=== PATIENT | female | born 2000 | race Caucasian/White ===

== ENCOUNTER → 2022-03-22 | Outpatient (CLI) | payer OTHER | LOC: M RAD 09:17 | PROVIDERS: ATTEND Obstetrics & Gynecology | DX: Z34.93 Encounter for supervision of normal pregnancy, unspecified, third trimester (principal); Z3A.30 30 weeks gestation of pregnancy ==

== ENCOUNTER 2022-05-02 14:37 | Outpatient (CLI) | payer OTHER ==
[~2022-05-02] VITALS: Ht 160 cm; Wt 96.9 kg
[2022-05-02] VITALS (8 sets, daily range): BP systolic 126–153; BP diastolic 78–99
[2022-05-02] MEDS ORDERED: FERR325T3 PO (15:05)
[2022-05-02] MEDS ORDERED: PRENTAB9 PO (15:05)
[2022-05-02] MEDS ORDERED: VITA500C24 PO (15:05)
[2022-05-02] MEDS ORDERED: HOME MED LIST COMPLETE! XX SCH (15:10)
[2022-05-02 16:30] LABS: TOTAL PROTEIN,RANDOM URINE 71.6 MG/DL (0.0-14.0)
[2022-05-02 16:35] LABS: CREATININE,RANDOM URINE 159.7 MG/DL
[2022-05-02] MEDS ORDERED: ACETAMINOPHEN TAB 650MG DOSE (2X325MG) PO ONE (16:50)
[2022-05-02 17:03] LABS: HEMOGLOBIN 13.1 g/dl (12.0-15.5); MEAN CORPUSCULAR HEMOGLOBIN 28.7 pg (27.0-33.0); MEAN CORPUSCULAR HGB CONC 32.8 g/dl (32.0-36.5); MEAN CORPUSCULAR VOLUME 87.7 fl (80.0-96.0); PLATELET COUNT, AUTOMATED 238 10^3/uL (150-450); RED BLOOD COUNT 4.56 10^6/uL (4.00-5.40); WHITE BLOOD COUNT 10.6 10^3/uL (4.0-10.0)
[2022-05-02 17:34] LABS: ALBUMIN 2.8 G/DL (3.2-5.2); ALKALINE PHOSPHATASE 105 U/L (46-116); ALT/SGPT 10 U/L (7.0-40); BILIRUBIN,TOTAL 0.3 MG/DL (0.3-1.2); BLOOD UREA NITROGEN 12 MG/DL (9-23); CALCIUM LEVEL 9.6 MG/DL (8.5-10.1); CARBON DIOXIDE LEVEL 22 MMOL/L (20-31); CHLORIDE LEVEL 106 MMOL/L (98-107); CREATININE FOR GFR 0.56 MG/DL (0.55-1.30); GLOMERULAR FILTRATION RATE > 60.0 (>60); GLUCOSE, FASTING 95 MG/DL (60-100); POTASSIUM SERUM 4.4 MMOL/L (3.5-5.1); SODIUM LEVEL 137 MMOL/L (136-145)
[2022-05-02] MEDS ORDERED: LABETALOL 200 MG TAB PO ONE (17:40)
[2022-05-02 18:15] LABS: AST/SGOT 18 U/L (<34); TOTAL PROTEIN 6.3 G/DL (5.7-8.2)
[2022-05-02] MEDS ORDERED: LABETALOL 200 MG TAB PO SCH (21:00)
== END 2022-05-02 19:58 | disposition home or self-care (01) ==
LOC: M LDO 14:37
PROVIDERS: ATTEND Registered Nurse
DX: O14.03 Mild to moderate pre-eclampsia, third trimester (principal); O36.8130 Decreased fetal movements, third trimester, not applicable or unspecified; Z3A.36 36 weeks gestation of pregnancy
CPT/HCPCS: 36415; 59025; 76816; 76819; 76820; 76821; 80053; 82570; 84156; 85027; G0463

== ENCOUNTER 2022-05-04 10:02 | Inpatient (IN) | payer OTHER ==
[2022-05-04] VITALS (17 sets, daily range): BP systolic 122–147; BP diastolic 60–95
[~2022-05-04] VITALS: Ht 160 cm; Wt 97.0 kg
[~2022-05-04 10:02] MED LIST: FERR325T3 PO; PRENTAB9 PO; VITA500C24 PO
[2022-05-04] MEDS ORDERED: LABE200T5 PO (10:52)
[2022-05-04] MEDS ORDERED: HOME MED LIST COMPLETE! XX SCH (10:55)
[2022-05-04] MEDS ORDERED: ACETAMINOPHEN 500 MG TAB PO ONE (11:00)
[2022-05-04] MEDS ORDERED: LACTATED RINGER'S 1000 ML IV STA (12:56)
[2022-05-04] MEDS ORDERED: OXYTOCIN INJ 10UNITS/ML 1ML VIAL IM PRN (13:00)
[2022-05-04] MEDS ORDERED: OXYTOCIN DRIP 30 UNITS in IV 1 EA IV PRN ×4 (13:00)
[2022-05-04] MEDS ORDERED: TRANEXAMIC ACID INJection 1,000 MG in NS 100 ML IV PRN (13:00)
[2022-05-04] MEDS ORDERED: METHYLERGONOVINE MALEATE 0.2MG/ML 1ML VIAL IM PRN ×2 (13:00→19:20)
[2022-05-04] MEDS ORDERED: CARBOPROST TROMETHAMINE 250 MCG/ML AMP IM PRN (13:00)
[2022-05-04] MEDS ORDERED: LIDOCAINE 1% MDV 20ML VIAL INFIL PRN (13:00)
[2022-05-04] MEDS ORDERED: ceFAZolin SOD 2 GM in IV 1 EA IV ONE (13:00)
[2022-05-04] MEDS ORDERED: BUPIVACAINE HCL 0.25% 10ML VIAL SC ONE (13:20)
[2022-05-04] MEDS: LR 1,000 ML IV SCH ×2 (13:33→21:00)
[2022-05-04 13:37] LABS: BASO % 0.4 % (0.0-1.0); EOS # 0.1 10^3/uL (0.0-0.5); EOS % 0.5 % (0.0-3.0); HEMATOCRIT 37.7 % (36.0-47.0); HEMOGLOBIN 12.4 g/dl (12.0-15.5); LYMPH # 2.4 10^3/uL (1.5-5.0); LYMPH % 24.2 % (24.0-44.0); MEAN CORPUSCULAR HEMOGLOBIN 28.9 pg (27.0-33.0); MEAN CORPUSCULAR HGB CONC 32.9 g/dl (32.0-36.5); MEAN CORPUSCULAR VOLUME 87.9 fl (80.0-96.0); MONO # 0.6 10^3/uL (0.0-0.8); MONO % 5.8 % (2.0-8.0); NEUTROPHILS # 6.8 10^3/uL (1.5-8.5); NEUTROPHILS % 68.3 % (36.0-66.0); PLATELET COUNT, AUTOMATED 238 10^3/uL (150-450); RED BLOOD COUNT 4.29 10^6/uL (4.00-5.40)
[2022-05-04 13:58] LABS: TOTAL PROTEIN,RANDOM URINE 18.8 MG/DL (0.0-14.0)
[2022-05-04 14:03] LABS: CREATININE,RANDOM URINE 93.8 MG/DL
[2022-05-04 14:04] LABS: ALBUMIN 2.8 G/DL (3.2-5.2); ALKALINE PHOSPHATASE 90 U/L (46-116); ALT/SGPT 10 U/L (7.0-40); AST/SGOT 18 U/L (<34); BILIRUBIN,TOTAL 0.4 MG/DL (0.3-1.2); BLOOD UREA NITROGEN 11 MG/DL (9-23); CALCIUM LEVEL 8.7 MG/DL (8.5-10.1); CARBON DIOXIDE LEVEL 23 MMOL/L (20-31); CHLORIDE LEVEL 106 MMOL/L (98-107); CREATININE FOR GFR 0.56 MG/DL (0.55-1.30); GLOMERULAR FILTRATION RATE > 60.0 (>60); GLUCOSE, FASTING 77 MG/DL (60-100); POTASSIUM SERUM 4.5 MMOL/L (3.5-5.1); SODIUM LEVEL 137 MMOL/L (136-145); TOTAL PROTEIN 6.1 G/DL (5.7-8.2)
[2022-05-04] MEDS ORDERED: MORPHINE 2 MG/ML 1ML VIAL IV PRN ×2 (17:35→19:20)
[2022-05-04] MEDS ORDERED: **NOTE PATIENT COMMENT** MISC XX SCH (17:35)
[2022-05-04] MEDS: SLF 3 ML SYR IV SCH (17:35)
[2022-05-04] MEDS ORDERED: NALBUPHINE HCL 10 MG/ML 1ML AMP IV PRN (17:35)
[2022-05-04] MEDS ORDERED: MEPERIDINE 25 MG/ML 1ML VIAL IV PRN (17:35)
[2022-05-04] MEDS ORDERED: diphenhydrAMINE 50MG/ML VIAL IV PRN (17:35)
[2022-05-04] MEDS ORDERED: METOCLOPRAMIDE INJ 10MG/2ML VIAL IV PRN (17:35)
[2022-05-04] MEDS ORDERED: PERCOCET 5MG/325MG TAB PO PRN ×2 (17:35→19:20)
[2022-05-04] MEDS ORDERED: ONDANSETRON 4MG 2ML VIAL IV PRN (17:35)
[2022-05-04] MEDS ORDERED: NALOXONE INJ 0.4MG/1ML VIAL IV PRN (17:35)
[2022-05-04] MEDS ORDERED: ONDANSETRON 4MG 2ML VIAL As Ordered ONE ×2 (18:01→19:08)
[2022-05-04] MEDS ORDERED: MORPHINE PRES-FREE INJ 10 MG/10 ML VIAL As Ordered ONE (18:01)
[2022-05-04] MEDS ORDERED: fentaNYL 100 MCG/2 ML INJECTION As Ordered ONE (18:01)
[2022-05-04] MEDS ORDERED: OXYTOCIN INJ 10UNITS/ML 1ML VIAL As Ordered ONE (18:01)
[2022-05-04] MEDS ORDERED: METOCLOPRAMIDE INJ 10MG/2ML VIAL As Ordered ONE ×2 (18:27→20:05)
[2022-05-04 18:30] LABS: CORD GAS ABE A -4.1; CORD GAS HCO3 A 23.5 MEQ/L; CORD GAS HCO3 V 21.9 MEQ/L; CORD GAS O2 SAT A 25.9 %; CORD GAS O2 SAT V 49.5 %; CORD GAS PCO2 A 51.9 mmHg; CORD GAS PCO2 V 43.1 mmHg; CORD GAS PH A 7.273 UNITS; CORD GAS PH V 7.324 UNITS; CORD GAS PO2 A 15.8 mmHg; CORD GAS PO2 V 24.5 mmHg; CORD GAS SBC A 19.4 MEQ/L; CORD GAS SBC V 19.9 MEQ/L; CORD GAS TCO2 A 25.1 MEQ/L; CORD GAS TCO2 V 23.2 MEQ/L
[2022-05-04] MEDS ORDERED: ACETAMINOPHEN TAB 650MG DOSE (2X325MG) PO PRN (19:20)
[2022-05-04] MEDS ORDERED: oxyCODONE 5MG TAB PO PRN (19:20)
[2022-05-04] MEDS ORDERED: DOCUSATE SODIUM 100MG CAPSULE PO PRN (19:20)
[2022-05-04] MEDS ORDERED: RHOGAM 300MCG (1500IU) INJ IM SCH (19:20)
[2022-05-04] MEDS ORDERED: OXYTOCIN DRIP 30 UNITS in IV 1 EA IV SCH ×4 (19:20)
[2022-05-04] MEDS ORDERED: SIMETHICONE 80MG CHEW TAB PO PRN (19:20)
[2022-05-04] MEDS ORDERED: MEPERIDINE 25 MG/ML 1ML VIAL As Ordered ONE (19:23)
[2022-05-04] MEDS ORDERED: OXYTOCIN 30UNITS IN 0.9% NaCl 500ML IV BAG As Ordered ONE (19:44)
[2022-05-04] MEDS: KETOROLAC 30 MG/ML 1ML VIAL IV SCH (21:50)
[2022-05-05] VITALS (8 sets, daily range): BP systolic 120–142; BP diastolic 60–79
[2022-05-05] MEDS: SLF 3 ML SYR IV SCH ×2 (01:35→08:47)
[2022-05-05] MEDS: KETOROLAC 30 MG/ML 1ML VIAL IV SCH ×3 (02:58→14:14)
[2022-05-05] MEDS: LR 1,000 ML IV SCH (05:50)
[2022-05-05 07:07] LABS: HEMATOCRIT 30.1 % (36.0-47.0); MEAN CORPUSCULAR HEMOGLOBIN 29.4 pg (27.0-33.0); MEAN CORPUSCULAR HGB CONC 33.2 g/dl (32.0-36.5); MEAN CORPUSCULAR VOLUME 88.5 fl (80.0-96.0); PLATELET COUNT, AUTOMATED 175 10^3/uL (150-450); WHITE BLOOD COUNT 10.9 10^3/uL (4.0-10.0)
[2022-05-05] MEDS: PRENATAL VITAMINS CHEWABLE TABLET PO SCH (08:45)
[2022-05-05] MEDS: LABETALOL 200 MG TAB PO SCH ×2 (09:30→21:21)
[2022-05-05] MEDS: ACETAMINOPHEN 500 MG TAB PO PRN (20:04)
[2022-05-05] MEDS: IBUPROFEN 800 MG TAB PO SCH (21:18)
[2022-05-06] VITALS (7 sets, daily range): BP systolic 131–144; BP diastolic 69–86
[2022-05-06] MEDS: ACETAMINOPHEN 500 MG TAB PO PRN ×2 (01:45→11:44)
[2022-05-06] MEDS: IBUPROFEN 800 MG TAB PO SCH ×3 (05:49→21:28)
[2022-05-06] MEDS: PRENATAL VITAMINS CHEWABLE TABLET PO SCH (08:14)
[2022-05-06] MEDS: LABETALOL 200 MG TAB PO SCH ×2 (08:57→21:17)
[2022-05-06] MEDS ORDERED: MEASLES,MUMPS,RUBELLA VACCINE INJ (MMR-II) SC.IMMUN ONE (09:00)
[2022-05-06] MEDS ORDERED: MOM 30ML SUSPENSION UDC PO PRN (12:20)
[2022-05-06] MEDS: PHENAZOPYRIDINE 100 MG TAB PO SCH ×2 (16:00→21:18)
[2022-05-07 02:00] VITALS: BP 139/89
[2022-05-07 06:00] VITALS: BP 138/79
[2022-05-07] MEDS: IBUPROFEN 800 MG TAB PO SCH (06:04)
[2022-05-07] MEDS: PHENAZOPYRIDINE 100 MG TAB PO SCH (07:56)
[2022-05-07] MEDS: PRENATAL VITAMINS CHEWABLE TABLET PO SCH (07:56)
[2022-05-07 08:07] VITALS: BP 163/91
[2022-05-07] MEDS: LABETALOL 200 MG TAB PO SCH (08:07)
[2022-05-07 10:00] VITALS: BP 141/79
== END 2022-05-07 12:50 | disposition home or self-care (01) | DRG 773 ==
LOC: M LDO 10:02 → M LDI 14:09 → M OBS 21:16
PROVIDERS: ADMIT Obstetrics & Gynecology; ATTEND Obstetrics & Gynecology
PROC: 10D00Z1 Extraction of Products of Conception, Low, Open Approach (ICD-10-PCS; principal; 2022-05-04 16:30)
DX: O34.211 Maternal care for low transverse scar from previous cesarean delivery (principal); O14.14 Severe pre-eclampsia complicating childbirth; O36.5930 Maternal care for other known or suspected poor fetal growth, third trimester, not applicable or unspecified; O36.8130 Decreased fetal movements, third trimester, not applicable or unspecified; Z3A.36 36 weeks gestation of pregnancy; Z37.0 Single live birth

== ENCOUNTER 2022-10-16 14:35 | Emergency (ER) | payer OTHER ==
[~2022-10-16] VITALS: Ht 160 cm; Wt 88.4 kg
[~2022-10-16 14:35] MED LIST changes: +LABE200T5 PO
[2022-10-16 18:29] VITALS: BP 117/73; TEMP 98; O2SAT 99
== END 2022-10-16 18:32 | disposition home or self-care (01) ==
LOC: M ED 14:35
DX: S90.32XA Contusion of left foot, initial encounter (principal); S93.402A Sprain of unspecified ligament of left ankle, initial encounter; W01.0XXA Fall on same level from slipping, tripping and stumbling without subsequent striking against object, initial encounter; Y92.009 Unspecified place in unspecified non-institutional (private) residence as the place of occurrence of the external cause; Y93.01 Activity, walking, marching and hiking; Y99.8 Other external cause status